=== PATIENT | male | born 1985 | race African-American/Black ===

== ENCOUNTER 2019-07-14 15:02 | Emergency (ER) | payer OTHER ==
[~2019-07-14] VITALS: Ht 180.3 cm; Wt 74.8 kg
[2019-07-14 15:06] VITALS: BP 125/90
[2019-07-14 15:53] LABS: URINE BILIRUBIN NEGATIVE (Negative); URINE BLOOD TRACE (Negative); URINE CLARITY CLEAR; URINE COLOR YELLOW; URINE GLUCOSE-RANDOM* NEGATIVE (Negative); URINE KETONES NEGATIVE (Negative); URINE LEUKOCYTES-REFLEX NEGATIVE (Negative); URINE NITRITE-REFLEX NEGATIVE (Negative); URINE PROTEIN (DIPSTICK) NEGATIVE (Negative); URINE UROBILINOGEN 0.2 E.U./dl (0.2-1.0)
[2019-07-14] MEDS ORDERED: NAPROSYN500 MG PO (16:42)
[2019-07-14] MEDS ORDERED: LIDOCAINE PAIN1 EACH TOP (16:42)
== END 2019-07-14 16:45 | disposition home or self-care (01) ==
LOC: ER 15:02
PROVIDERS: Physician Assistant
DX: M54.5 Low back pain (principal)